=== PATIENT | female | born 1990 | race Caucasian/White ===

== ENCOUNTER 2022-05-14 13:49 | Outpatient (CLI) | payer OTHER | END 2022-05-14 13:50 | disposition home or self-care (01) | LOC: CSHULT 13:49 | PROVIDERS: ATTEND Advanced Practice Midwife | DX: Z34.92 Encounter for supervision of normal pregnancy, unspecified, second trimester (principal); Z3A.22 22 weeks gestation of pregnancy | CPT/HCPCS: 76805 ==

== ENCOUNTER 2022-09-05 05:46 | Inpatient (IN) | payer MEDICAID, OTHER ==
[2022-09-05] MEDS ORDERED: NS w/ Oxytocin 30 units 500 ML IV SCH (06:17)
[2022-09-05] MEDS ORDERED: hydrALAZINE 20 MG/ML VIAL SLOW IVP PRN ×2 (06:17→15:19)
[2022-09-05] MEDS ORDERED: Promethazine HCl 25 MG/ML VIAL IM PRN ×3 (06:17→15:19)
[2022-09-05] MEDS ORDERED: Diphenoxylate HCl/Atropine Tablet PO PRN (06:17)
[2022-09-05] MEDS ORDERED: Methylergonovine 0.2 MG/ML VIAL IM PRN (06:17)
[2022-09-05] MEDS ORDERED: Ondansetron PF 4 MG/2 ML Vial IVP PRN ×3 (06:17→15:19)
[2022-09-05] MEDS ORDERED: Tranexamic Acid 1,000 MG/10 ML VIAL IVP PRN (06:17)
[2022-09-05] MEDS ORDERED: Lactated Ringer's 1,000 ML IV SCH (06:17)
[2022-09-05] MEDS ORDERED: Misoprostol 200 MCG TAB PR PRN (06:17)
[2022-09-05] MEDS ORDERED: CEFAZOLIN 2 GM in Sodium Chloride 0.9% 100 ML IVPB SCH (06:17)
[2022-09-05] MEDS ORDERED: Bicitra 30 ML UDCUP PO PRN (06:17)
[2022-09-05] MEDS ORDERED: Famotidine/PF 20 mg/2ml Vial SLOW IVP PRN (06:17)
[2022-09-05] MEDS ORDERED: Carboprost 250 MCG/ML AMP IM PRN (06:17)
[2022-09-05 06:22] VITALS: BMI 36.2
[2022-09-05 06:59] LABS: Hemoglobin 12.7 g/dL (12.0-15.5); Mean Corpuscular HGB CONC 33.8 g/dL (32.0-36.0); Mean Corpuscular Hemoglobin 30.4 pg (27.0-33.0); Mean Platelet Volume 13.8 fl (7.4-10.4); Platelet Count 123 10x3/uL (150-450); RBC Distribution Width 14.5 % (11.5-14.5); Red Blood Cell (RBC) Count 4.18 10x6/uL (3.90-5.03); White Blood Cell (WBC) Count 10.4 10x3/uL (3.5-10.5)
[2022-09-05] MEDS ORDERED: Morphine PF 10 MG/10 ML VIAL ONE (07:07)
[2022-09-05] MEDS ORDERED: Dexamethasone 4 mg/ml Vial ONE (07:11)
[2022-09-05] MEDS ORDERED: Phenylephrine 40 MG/NS 250 ML 250 ML ONE (07:11)
[2022-09-05] MEDS ORDERED: Ketorolac Tromethamine 30 MG/ML VIAL ONE (07:11)
[2022-09-05] MEDS ORDERED: Ondansetron PF 4 MG/2 ML Vial ONE ×2 (07:11→07:28)
[2022-09-05] MEDS ORDERED: PHENYLEPHRINE-NS 100 MCG/ML 10 ML SYRINGE ONE (07:11)
[2022-09-05] MEDS ORDERED: Oxytocin 10 UNITS/ML VIAL ONE (07:11)
[2022-09-05] MEDS ORDERED: Fentanyl 100 MCG/2 ML VIAL SLOW IVP PRN (07:20)
[2022-09-05] MEDS ORDERED: Ondansetron HCl/PF 4 MG/2 ML Vial IVP PRN (07:20)
[2022-09-05] MEDS ORDERED: Naloxone HCl 0.4 mg/ml Vial IV PRN (07:20)
[2022-09-05] MEDS ORDERED: Promethazine HCl 25 MG SUPP PR PRN (07:20)
[2022-09-05] MEDS ORDERED: Naloxone HCl 0.4 mg/ml Vial IVP PRN ×2 (07:20)
[2022-09-05] MEDS ORDERED: Ketorolac Tromethamine 30 MG/ML VIAL IVP PRN (07:20)
[2022-09-05] MEDS ORDERED: Moisturizing Cream (Eucerin) 113 GM JAR TOP PRN (07:20)
[2022-09-05] MEDS ORDERED: diphenhydrAMINE 50 MG/ML VIAL IVP PRN (07:20)
[2022-09-05] MEDS ORDERED: Meperidine HCl/PF 25 MG/ML VIAL SLOW IVP PRN (07:20)
[2022-09-05 07:24] LABS: Syphilis Antibody Nonreactive (Nonreactive); Syphilis Antibody Index 0.03 S/CO (<1.00 Non-Reactive)
[2022-09-05 07:27] LABS: HBSAg Index 0.18 S/CO (0-0.99); Hep B Surf Ag - L&D Non-Reactive S/CO (NonReactive)
[2022-09-05] MEDS ORDERED: Ketorolac Tromethamine 30 MG/ML VIAL IVP SCH (07:30)
[2022-09-05] MEDS ORDERED: Communication Order-Pharmacy FS SCH (07:30)
[2022-09-05] MEDS ORDERED: Glycopyrrolate 0.2 MG/ML 5 ML SYRINGE ONE (07:57)
[2022-09-05] MEDS ORDERED: Methylergonovine 0.2 MG/ML VIAL ONE (08:09)
[2022-09-05 12:15] LABS: Hemoglobin 11.5 g/dL (12.0-15.5)
[2022-09-05] MEDS ORDERED: HYDROcodone/Acetaminophen 5/325 mg Tablet PO PRN (15:19)
[2022-09-05] MEDS ORDERED: diphenhydrAMINE 25 MG CAP PO PRN (15:19)
[2022-09-05] MEDS ORDERED: Boostrix 0.5 ML (Tdap) VIAL (>/=7 yrs of age) IM ONE (15:19)
[2022-09-05] MEDS ORDERED: Meperidine HCl/PF 25 MG/ML VIAL IM PRN (15:19)
[2022-09-05] MEDS ORDERED: Bisacodyl 10 MG SUPP PR PRN (15:19)
[2022-09-05] MEDS ORDERED: Docusate 100 MG CAP PO SCH (15:30)
[2022-09-05] MEDS ORDERED: Ferrous Sulfate 325 MG TAB PO SCH (15:30)
[2022-09-05] MEDS: Ferrous Sulfate 325 MG TAB PO SCH (20:57)
[2022-09-05] MEDS: Ibuprofen 800 MG TAB PO SCH (21:19)
[2022-09-05] MEDS: Docusate 100 MG CAP PO SCH (21:19)
[2022-09-06] MEDS: HYDROcodone/Acetaminophen 5/325 mg Tablet PO PRN ×5 (04:04→21:45)
[2022-09-06] MEDS: Simethicone Chewable 80 MG TAB PO PRN ×4 (04:04→17:44)
[2022-09-06 04:09] LABS: Mean Corpuscular HGB CONC 32.9 g/dL (32.0-36.0); Mean Corpuscular Hemoglobin 30.2 pg (27.0-33.0); Mean Corpuscular Volume 91.7 fl (81.6-98.3); Mean Platelet Volume 13.2 fl (7.4-10.4); Platelet Count 100 10x3/uL (150-450); RBC Distribution Width 14.3 % (11.5-14.5); Red Blood Cell (RBC) Count 2.65 10x6/uL (3.90-5.03); White Blood Cell (WBC) Count 10.6 10x3/uL (3.5-10.5)
[2022-09-06] MEDS: Ibuprofen 800 MG TAB PO SCH ×3 (06:28→21:44)
[2022-09-06] MEDS: Docusate 100 MG CAP PO SCH ×2 (08:18→21:45)
[2022-09-06] MEDS: Ferrous Sulfate 325 MG TAB PO SCH ×2 (08:18→21:44)
[2022-09-07] MEDS: Ibuprofen 800 MG TAB PO SCH ×3 (05:44→20:35)
[2022-09-07] MEDS: HYDROcodone/Acetaminophen 5/325 mg Tablet PO PRN ×2 (05:45→20:34)
[2022-09-07] MEDS: Docusate 100 MG CAP PO SCH ×2 (09:38→20:35)
[2022-09-07] MEDS: Ferrous Sulfate 325 MG TAB PO SCH ×2 (09:38→20:34)
[2022-09-08] MEDS: HYDROcodone/Acetaminophen 5/325 mg Tablet PO PRN ×3 (05:29→12:53)
[2022-09-08] MEDS: Ibuprofen 800 MG TAB PO SCH (05:29)
[2022-09-08 08:03] VITALS: BP 110/52; TEMP 98.6
[2022-09-08] MEDS: Ferrous Sulfate 325 MG TAB PO SCH (08:50)
[2022-09-08] MEDS: Simethicone Chewable 80 MG TAB PO PRN (08:50)
[2022-09-08] MEDS: Docusate 100 MG CAP PO SCH (08:51)
== END 2022-09-08 13:10 | disposition home or self-care (01) | DRG 787 ==
LOC: CSHLD 05:46 → CSHPED 15:11
PROVIDERS: ADMIT Family Medicine; ATTEND Family Medicine
PROC: 10D00Z1 Extraction of Products of Conception, Low, Open Approach (ICD-10-PCS; principal; 2022-09-05)
DX: O34.211 Maternal care for low transverse scar from previous cesarean delivery (principal); O72.1 Other immediate postpartum hemorrhage; Z3A.39 39 weeks gestation of pregnancy; Z37.0 Single live birth; Z79.899 Other long term (current) drug therapy
CPT/HCPCS: 36415; 51702; 85027; 86780; 86850; 86900; 86901; 87340; J1100; J1885; J2210; J2274; J2405; J2590